=== PATIENT | female | born 1950 | race Caucasian/White ===

== ENCOUNTER 2016-07-30 07:17 | Day surgery (SDC) | payer BC ==
--- NOTE | ~2016-07-30 | EGD ---
EGD REPORT [facility] [address] [place] [address] NAME: MERCEDES BROUSSARD : [birth year] STATUS : REG [facility]#: [id number] AGE: 66 ADM/REG DATE : 07/30/16 MR#: [id number] REPORT SERV DATE: 07/30/16 DICTATED BY: HOPE TENA DATE: 07/30/16 REPORT STATUS : Draft TRANS[facility]IBED BY: [facility] DATE: 07/30/16 [facility] Patient Name: Mercedes Broussard Date of : 1950 Attending MD: MAURICE TENA MD Procedure Date No Time: 07/30/2016 Procedure: Colonoscopy Indications: High risk colon cancer surveillance: Personal history of colonic polyps, Last colonoscopy: June 2013 Referring MD: CRISTOBAL BELCHER Medicines: See the Anesthesia note for documentation of the administered medications Complications: No immediate complications. Estimated blood loss: None. Procedure: Pre-Anesthesia Assessment: - ASA Grade Assessment: II - A patient with mild systemic disease. - Prior to the procedure, a History and Physical was performed, and patient medications and allergies were reviewed. The patient's tolerance of previous anesthesia was also reviewed. The risks and benefits of the procedure and the sedation options and risks were discussed with the patient. All questions were answered, and informed consent was obtained. Prior Anticoagulants: The patient has taken no previous anticoagulant or antiplatelet agents. After reviewing the risks and benefits, the patient was deemed in satisfactory condition to undergo the procedure. After I obtained informed consent, the scope was passed under direct vision. Throughout the procedure, the patient's blood pressure, pulse, and oxygen saturations were monitored continuously. The PCF [id number] was introduced through the anus and advanced to the terminal ileum. The ileocecal valve, appendiceal orifice, terminal ileum and rectum were photographed. The entire colon was examined. The colonoscopy was performed without difficulty. The patient tolerated the procedure well. The quality of the bowel preparation was adequate. Findings: The perianal and digital rectal examinations were normal. The terminal ileum appeared normal. Non-bleeding internal hemorrhoids were found during retroflexion and were Grade I (internal hemorrhoids that do not prolapse). No other significant abnormalities were identified in a careful examination of the remainder of the colon. EGD REPORT [address] [address] NAME: MERCEDES BROUSSARD : [birth year] STATUS : REG [facility]#: [id number] AGE: 66 ADM/REG DATE : 07/30/16 MR#: [id number] REPORT SERV DATE: 07/30/16 DICTATED BY: HOPE TENA DATE: 07/30/16 REPORT STATUS : Draft TRANSCRIBED BY: [facility] DATE: 07/30/16 Impression: - The examined portion of the ileum was normal. - Non-bleeding internal hemorrhoids. Recommendation: - Patient has a contact number available for emergencies. The signs and symptoms of potential delayed complications were discussed with the patient. Return to normal activities tomorrow. Written discharge instructions were provided to the patient. - Regular diet. - Discharge patient to home. - Continue present medications. - Repeat colonoscopy in 5 years for surveillance. Procedure Code(s): --- Professional --- 38986, Colonoscopy, flexible, proximal to splenic flexure; diagnostic, with or without collection of specimen(s) by brushing or washing, with or without colon decompression (separate procedure) Diagnosis Code(s): --- Professional --- K64.0, First degree hemorrhoids Z86.010, Personal history of colonic polyps CPT copyright 2013 [employer]. All rights reserved. The codes documented in this report are preliminary and upon bar and filler assembler review may be revised to meet current compliance requirements. MAURICE TENA MD 07/30/2016 9:05 AM This report has been signed electronically. Number of Addenda: 0 Note Initiated On: 07/30/2016 8:39 AM Scope Withdrawal Time 0 hours 7 minutes 17 seconds [id number] [id number]
[~2016-07-30 07:17] MED LIST: B COMPLETE OR; B COMPLETE PO; CALCIUM PO; KLONO5 PO; MULTIPLE VIT PO; OSTEO MATRIX PO; PAX10 PO; SYN075 PO; SYN88 PO; VIT D PO; VITAMIN D31000 UNIT PO; VITC500 PO; VITE PO
== END 2016-07-30 23:59 | disposition home or self-care (01) ==
LOC: DMU 07:17
PROVIDERS: Internal Medicine Gastroenterology
PROC: 0DJD8ZZ Inspection of Lower Intestinal Tract, Via Natural or Artificial Opening Endoscopic (ICD-10-PCS; principal; 2016-07-30 08:30)
DX: Z12.11 Encounter for screening for malignant neoplasm of colon (principal); K64.0 First degree hemorrhoids; E03.9 Hypothyroidism, unspecified; Z86.010 Personal history of colon polyps; Z91.041 Radiographic dye allergy status; Z88.8 Allergy status to other drugs, medicaments and biological substances; Z79.899 Other long term (current) drug therapy